=== PATIENT | male | born 1995 | race Caucasian/White ===

== ENCOUNTER 2021-07-10 17:02 | Emergency (ER) | payer BC, SELFPAY ==
--- NOTE | ~2021-07-10 | CT_ITS ---
EXAMINATION: CT abdomen pelvis wo con DATE: 07/10/2021 19:00 INDICATION: Left-sided flank pain. Hematuria. Kidney stones. TECHNIQUE: Computed tomography (CT) of the abdomen and pelvis was performed without intravenous contr ast. The dose-length product was 183.41 mGy-cm. Automated exposure control and iterative reconstructi on technique were employed. COMPARISON: CT dated 05/22/2005. FINDINGS: Lung bases unremarkable. Heart size normal. No significant pleural or pericardial effusion. No significant vascular abnormality. No lymphadenopathy. Normal appendix. There are nonobstructing bilateral renal stones. There is a large stone in the bladder near the UVJ m easuring 8 mm maximum dimension. No significant hydronephrosis. No right ureteral stones. No free air or free fluid. The liver, spleen, pancreas, adrenal glands are unremarkable. No significant vascular abnormality. No nobstructive bowel gas pattern. Colonic diverticulosis without evidence for diverticulitis. Gallbladd er is present. IMPRESSION: 1. Stone in the bladder near the UVJ measuring 8 mm, possibly recently passed stone. No hydronephrosi s. 2: Nonobstructing bilateral nephrolithiasis. Reviewed, dictated and finalized at location A.
[2021-07-10 17:25] VITALS: BP 136/79; PULSE 90; RESP 15; TEMP 36.4; O2SAT 99
[2021-07-10 18:08] LABS: Add Urine Microscopic? YES; Appearance Urine Clear (Clear); Bilirubin Urine Negative (Negative); Blood Urine 3+ (Negative); Color Urine Yellow (Yellow); Glucose Urine UA Negative (Negative); Ketones Urine 1+ mg/dL (Negative); Leukocyte Esterase Ur Negative LEU/UL (Negative); Mucus Urine Rare /lpf; Nitrate Urine Negative (Negative); Protein Urine 2+ mg/dL (Negative); RBC Urine >75 /hpf (0-2); Specific Grav Ur 1.029 (1.001-1.035); WBC Urine 0-3 /hpf
[2021-07-10] MEDS: SODIUM CHLORIDE 0.9% IV 1,000 ML 999 ML IV CONT (18:47)
[2021-07-10 18:55] LABS: Basophils Absolute Auto 0.1 K/mm3 (0.0-0.1); Basophils Percent Auto 0.6 % (0.2-1.2); Eosinophils Absolute Auto 0.2 K/mm3 (0-0.3); Eosinophils Percent Auto 1.5 % (0-4.4); Hematocrit 44.4 % (42.0-52.0); Hemoglobin 14.8 g/dL (14.0-18.0); Immature Granulocyte Absolute 0.03 K/mm3 (0.00-0.031); Immature Granulocyte Percent A 0.2 % (0-0.5); Lymphocytes Absolute Auto 3.17 K/mm3 (0.9-3.2); Mean Corpuscular HGB Conc 33.3 g/dl (32-36); Mean Corpuscular Hemoglobin 30.1 pg (26-34); Mean Corpuscular Volume 90.4 fl (80-100); Mean Platelet Volume 8.8 fl (7.4-10.4); Monocytes Absolute Auto 1.4 K/mm3 (0.1-0.6); Monocytes Percent Auto 11.2 % (2.6-8.5); Neutrophils Absolute Auto 7.4 K/mm3 (1.3-6.7); Neutrophils Percent Auto 60.5 % (45.5-73.1); Platelet Count Result 378 k/mm3 (150-375); Red Blood Count 4.91 M/mm3 (4.6-6.20); Red Cell Distribution Width 13.2 % (11.5-14.5); White Blood Count 12.2 K/mm3 (4.5-10.0)
[2021-07-10 19:04] LABS: Anion Gap 9 mmol/L (8-16); Blood Urea Nitrogen 22 mg/dL (9-20); Calcium 10.8 mg/dL (8.4-10.2); Carbon Dioxide 31 mmol/L (22-30); Chloride 97 mmol/L (98-107); Estimated CRCL calculation 93 ml/min; Estimated Glomerular Filt Rate > 60; Glucose 97 mg/dL (65-110); Potassium 3.5 mmol/L (3.4-5.0); Sodium 137 mmol/L (137-145)
--- NOTE | 2021-07-10 19:20 | ED.GENADULT ---
HPI - General Adult General Chief complaint: Urogenital-Male Stated complaint: Blood in urine Time Seen by Provider: 07/10/21 18:26 Source: patient and RN notes reviewed Mode of arrival: ambulatory Limitations: no limitations History of Present Illness HPI narrative: Patient is a 26-year-old who presents with blood in the urine noticed today believes he may have had a kidney stone a week ago was not evaluated for just felt as though he may have a kidney stone patient today is denying any pain but noting that he noticed blood in the urine he denies any other symptoms or complaints presents in no distress notes that he does work in the heat and had concern for possible dehydration secondary to heat exposure denies vomiting fever chills Related Data Home Medications Medication Instructions Recorded Confirmed No Home Medications 07/10/21 07/10/21 Allergies Allergy/AdvReac Type Severity Reaction Status Date / Time No Known Allergies Allergy Verified 07/10/21 18:30 Review of Systems Review of Systems: All systems reviewed & are unremarkable except as noted in HPI and below Exam Narrative: GENERAL: Well-appearing, well-nourished, and in no acute distress. HEAD: Normocephalic, atraumatic. EYES: PERRLA and EOMI. ENT: Nares clear, no rhinorrhea or epistaxis. Mucous membranes moist. CHEST: Clear to auscultation. No respiratory distress. No wheezes rales or rhonchi HEART: Regular rate and rhythm. No murmur heard. Normal peripheral pulses. ABDOMEN: Soft, nontender, nondistended EXTREMITIES: Normal range of motion. No edema. SKIN: Warm, dry, no rash. NEURO: No focal deficits. Alert and oriented x3. Cranial nerves II through XII grossly intact PSYCH: Normal mood and affect. Course Course Emergency Course: Patient found to have a large stone in the bladder will be referred to urology for follow-up in regards to this patient is agreeing with this treatment plan he is pain-free asymptomatic at this time no other concerning findings in the evaluation will be discharged home with outpatient follow-up provided with reasons to return he agrees with this treatment plan has been given strict reasons to return Vital Signs Vital signs: Vital Signs Temperature 97.6 F 07/10/21 17:25 Pulse Rate 90 07/10/21 17:25 Respiratory Rate 15 07/10/21 17:25 Blood Pressure 136/79 07/10/21 17:25 Pulse Oximetry 99 07/10/21 17:25 Temperature 97.6 F 07/10/21 17:25 Pulse Rate 90 07/10/21 17:25 Respiratory Rate 15 07/10/21 17:25 Blood Pressure 136/79 07/10/21 17:25 Pulse Oximetry 99 07/10/21 17:25 Medical Decision Making MDM Narrative Medical decision making narrative: Patient in the room no distress aware of case findings treatment plan and diagnosis patient found to have large bladder stone he will be discharged with outpatient follow-up given contact resources for urology he agrees to follow-up with them also provided with strict reasons to return Vital Signs Vital Signs: Vital Signs Temperature 97.6 F 07/10/21 17:25 Pulse Rate 90 07/10/21 17:25 Respiratory Rate 15 07/10/21 17:25 Blood Pressure 136/79 07/10/21 17:25 Pulse Oximetry 99 07/10/21 17:25 Temperature 97.6 F 07/10/21 17:25 Pulse Rate 90 07/10/21 17:25 Respiratory Rate 15 07/10/21 17:25 Blood Pressure 136/79 07/10/21 17:25 Pulse Oximetry 99 07/10/21 17:25 Lab Data Result diagrams: 07/10/21 18:48 07/10/21 18:48 Labs: Lab Results 07/10/21 07/10/21 07/10/21 Range/Units 17:46 18:48 18:48 WBC 12.2 H (4.5-10.0) K/mm3 RBC 4.91 (4.6-6.20) M/mm3 Hgb 14.8 (14.0-18.0) g/dL Hct 44.4 (42.0-52.0) % MCV 90.4 (80-100) fl MCH 30.1 (26-34) pg MCHC 33.3 (32-36) g/dl RDW 13.2 (11.5-14.5) % Plt Count 378 H (150-375) k/mm3 MPV 8.8 (7.4-10.4) fl Immature Gran % (Auto) 0.2 (0-0.5) % Neut % (Auto) 60.5 (45.5-73.1) % Lymph % (Auto) 26
[2021-07-10 20:00] VITALS: BP 133/73; PULSE 87; RESP 15; O2SAT 100
== END 2021-07-10 20:34 | disposition home or self-care (01) ==
PROVIDERS: Emergency Medicine Emergency Medical Services; Emergency Provider Family Medicine
DX: N20.9 Urinary calculus, unspecified (principal)
CPT/HCPCS: 36415; 74176; 80048; 81001; 85025; 96360; 99284; J7030

== ENCOUNTER → 2021-08-15 13:00 | Outpatient (CLI) | payer BC, SELFPAY ==
--- NOTE | ~2021-08-15 | XR_ITS ---
EXAMINATION: XR abdomen/kub 1V DATE: 08/15/2021 13:45 INDICATION: Left ureteral stone. TECHNIQUE: A supine view of the abdomen on 2 radiographs was obtained. COMPARISON: CT abdomen and pelvis 07/10/2021 FINDINGS: There are no dilated loops of bowel. There is a 4 mm stone in right kidney. IMPRESSION: 1. 4 mm stone in right kidney. Reviewed, dictated and finalized at location A.
== END ==
PROVIDERS: Visit Provider Urology
DX: N20.0 Calculus of kidney (principal)
CPT/HCPCS: 74018